=== PATIENT | female | born 1995 | race Caucasian/White ===

== ENCOUNTER 2024-06-01 18:40 | Emergency (ER) | payer BC, OTHER ==
[~2024-06-01] VITALS: Ht 162.6 cm; Wt 64.0 kg
[2024-06-01 18:45] VITALS: BP 105/68; PULSE 84; RESP 16; TEMP 98.3; O2SAT 98
== END 2024-06-01 21:45 | disposition home or self-care (01) ==
LOC: ER 18:40
DX: Z32.01 Encounter for pregnancy test, result positive (principal)
CPT/HCPCS: 36415; 81025; 84702; 99283